=== PATIENT | male | born 1945 | race Caucasian/White ===

== ENCOUNTER 2022-12-05 02:46 | Day surgery (SDC) | payer MEDICARE, BC, SELFPAY ==
[2022-11-18 15:05] VITALS: BMI 29.0
--- NOTE | 2022-12-04 14:16 | WPDANESEPPF ---
Anes - Initial Pre Proc Eval Procedure: Operation Date: 12/05/22 11:00 Proposed Procedures p Esophagogastroduodenoscopy & Screening Colonoscopy - Pritesh Almonte MD Date/Time: 12/04/22 14:16 Surgeon: Pritesh Almonte MD Pre Op Diagnosis: dysphagia, neoplasm screening Patient Data Age: 77 Gender: M Height: 1.7 m Weight: 84.07 kg Allergies Allergy/AdvReac Type Severity Reaction Status Date / Time No Known Allergies Allergy Verified 12/05/22 09:57 Home Medications Medication Instructions Recorded Confirmed Type allopurinol 300 mg tablet 300 mg PO DAILY 10/30/22 12/05/22 History brinzolamide 1 %-brimonidine 0.2 % 1 drp EACH EYE TID 10/30/22 12/05/22 History eye drops,suspension (Simbrinza) captopril 12.5 mg tablet 12.5 mg PO Q12H 10/30/22 12/05/22 History ezetimibe 10 mg tablet (Zetia) 10 mg PO DAILY 10/30/22 12/05/22 History fenofibrate nanocrystallized 145 145 mg PO DAILY 10/30/22 12/05/22 History mg tablet (Tricor) liraglutide 0.6 mg/0.1 mL (18 mg/3 0.6 mg subcut DAILY 10/30/22 12/05/22 History mL) subcutaneous pen injector (Victoza 2-Papi) metoprolol succinate 50 mg 50 mg PO DAILY 10/30/22 12/05/22 History tablet,extended release 24 hr mirtazapine 45 mg disintegrating 45 mg PO DAILY 10/30/22 12/05/22 History tablet (Remeron SolTab) pantoprazole 40 mg tablet,delayed 40 mg PO QAM 10/30/22 12/05/22 History release pramipexole 0.125 mg tablet 0.125 mg PO QHS 10/30/22 12/05/22 History simvastatin 40 mg tablet 40 mg PO DAILY 10/30/22 12/05/22 History terazosin 2 mg capsule 2 mg PO DAILY 10/30/22 12/05/22 History tramadol 37.5 mg-acetaminophen 325 1 tablet PO Q6H PRN Pain 10/30/22 12/05/22 History mg tablet Patient hx anesthesia problems: none Family hx anesthesia problems: none Results Review: All pre-operative results and documents have been reviewed as part of the pre-operative evaluation. [facility] Past Medical History Medical History (Updated 12/05/22 @ 10:37 by Pritesh Almonte MD) Anal fissure Basal cell adenocarcinoma CAD (coronary artery disease) Carpal tunnel syndrome on both sides CKD (chronic kidney disease) III Diabetes mellitus Dilation of esophagus Dysphagia Encounter for screening colonoscopy Esophageal dysphagia GERD (gastroesophageal reflux disease) GI bleed History of heart attack HLD (hyperlipidemia) Hypertension Kidney stone Knee arthropathy Sepsis Surgical History Surgical History (Updated 12/05/22 @ 10:03 by Agapito Yoder DO) H/O endoscopy H/O heart artery stent 2004 x2, 2017?X1 History of appendectomy Social History Social History Smoking status: Never smoker Living arrangements: with family Geovanny Frey Final PreProcedure Day of Procedure 12/04/22 14:16 Patient weight: overweight Heart: regular rate and rhythm Lungs: clear to auscultation Airway: Mallampati scale class II Neurological: alert and oriented Last oral intake: >/= 8 hours ASA classification: III Emergent: no Anesthetic plan: proceed Anesthesia type and monitoring: general GIVS and standard monitoring Results Review: All pre-operative results and documents have been reviewed as part of the pre-operative evaluation. Informed Consent: The patient's anesthetic plan and its attendant risks and benefits were discussed with the patient/family/POA. Questions were solicited and answers provided to the satisfaction of the patient/family/POA.
[2022-12-05 09:58] VITALS: BP 128/98; PULSE 94; RESP 18; TEMP 36.3; O2SAT 100
[2022-12-05] MEDS: LACTATED RINGERS 1,000 ML 150 ML IV CONT (10:11)
--- NOTE | 2022-12-05 10:36 | PM.HPGS ---
History of Present Illness History of Present Illness Consent: Risks, benefits, and alternatives have been discussed and questions answered. Patient agrees to proceed with procedure. Chief complaint: dysphagia, neoplasm screening Narrative: Bob Nascimento is a 77 year old male with gerd controlled with ppi but lately dysphagia, had dilatation 2 years ago, last colonoscopy 20 years ago. Review of Systems Constitutional: Constitutional: Denies headache(s) and Denies weakness Eyes: Eyes: Denies blurry vision ENT: Reports Normal hearing present, Denies headache(s) and Denies neck pain Cardiovascular: Cardiovascular: Denies chest pain and Denies dyspnea Respiratory: Respiratory: Denies dyspnea Gastrointestinal: Gastrointestinal: Reports no additional gastrointestinal complaints Genitourinary: Genitourinary: Denies dysuria Musculoskeletal: Musculoskeletal: Denies neck pain Integumentary/Breasts: Skin/Breast: Denies dry skin Neurologic: Reports Normal hearing present, Denies headache(s) and Denies weakness Psychiatric: Psychiatric: Denies anxiety Endocrine: Endocrine: Denies change in body appearance Hematologic/Lymphatic: Hematologic/Lymphatic: Denies easy bleeding Allergic/Immunologic: Allergic/Immunologic: Denies urticaria PMFSH Past Medical History Medical History (Updated 12/05/22 @ 10:37 by Pritesh Almonte MD) Anal fissure Basal cell adenocarcinoma CAD (coronary artery disease) Carpal tunnel syndrome on both sides CKD (chronic kidney disease) III Diabetes mellitus Dilation of esophagus Dysphagia Encounter for screening colonoscopy Esophageal dysphagia GERD (gastroesophageal reflux disease) GI bleed History of heart attack HLD (hyperlipidemia) Hypertension Kidney stone Knee arthropathy Sepsis Surgical History Surgical History (Updated 12/05/22 @ 10:03 by Agapito Yoder DO) H/O endoscopy H/O heart artery stent 2004 x2, 2018?X1 History of appendectomy Social History Social History Smoking status: Never smoker Living arrangements: with family Meds Home Medications and Allergies Home Medications Medication Instructions Recorded Confirmed Type allopurinol 300 mg tablet 300 mg PO DAILY 10/30/22 12/05/22 History brinzolamide 1 %-brimonidine 0.2 % 1 drp EACH EYE TID 10/30/22 12/05/22 History eye drops,suspension (Simbrinza) captopril 12.5 mg tablet 12.5 mg PO Q12H 10/30/22 12/05/22 History ezetimibe 10 mg tablet (Zetia) 10 mg PO DAILY 10/30/22 12/05/22 History fenofibrate nanocrystallized 145 145 mg PO DAILY 10/30/22 12/05/22 History mg tablet (Tricor) liraglutide 0.6 mg/0.1 mL (18 mg/3 0.6 mg subcut DAILY 10/30/22 12/05/22 History mL) subcutaneous pen injector (Victoza 2-Papi) metoprolol succinate 50 mg 50 mg PO DAILY 10/30/22 12/05/22 History tablet,extended release 24 hr mirtazapine 45 mg disintegrating 45 mg PO DAILY 10/30/22 12/05/22 History tablet (Remeron SolTab) pantoprazole 40 mg tablet,delayed 40 mg PO QAM 10/30/22 12/05/22 History release pramipexole 0.125 mg tablet 0.125 mg PO QHS 10/30/22 12/05/22 History simvastatin 40 mg tablet 40 mg PO DAILY 10/30/22 12/05/22 History terazosin 2 mg capsule 2 mg PO DAILY 10/30/22 12/05/22 History tramadol 37.5 mg-acetaminophen 325 1 tablet PO Q6H PRN Pain 10/30/22 12/05/22 History mg tablet Allergies Allergy/AdvReac Type Severity Reaction Status Date / Time No Known Allergies Allergy Verified 12/05/22 09:57 Vital Signs Vital Signs - 24 hr 12/05/22 09:58 Temperature 97.4 F L Pulse Rate 94 Respiratory Rate 18 Blood Pressure 128/98 H Pulse Oximetry 100 Oxygen Delivery Room Air Exam Const: General: comfortable and no acute distress HENMT: Face/Nose/Sinus: Normal nares present Eyes: General: appearance normal, both eyes and all related structures Neck: Neck: no JVD Resp: Auscultation: clear to auscultation bilaterally Cardio: Rate: regular rat
[2022-12-05 10:48] LABS: Glucose Point of Care 198 mg/dl (65-105)
--- NOTE | 2022-12-05 11:04 | SUR.OPER ---
egd ended at 1057, colonoscopy started at 1103
[2022-12-05 11:16] VITALS: BP 110/62; PULSE 85; RESP 22; O2SAT 98
[2022-12-05 11:26] VITALS: BP 122/77; PULSE 86; RESP 20; O2SAT 99
[2022-12-05 11:36] VITALS: BP 135/81; PULSE 82; RESP 24; O2SAT 100
== END 2022-12-05 11:56 | disposition home or self-care (01) ==
PROVIDERS: PCP Family Medicine; Visit Provider Internal Medicine Gastroenterology
PROC: 0DJ08ZZ Inspection of Upper Intestinal Tract, Via Natural or Artificial Opening Endoscopic (ICD-10-PCS; CPT 43235; principal; 2022-12-05 11:00)
DX: Z12.11 Encounter for screening for malignant neoplasm of colon (principal); D12.3 Benign neoplasm of transverse colon; K63.5 Polyp of colon; K62.1 Rectal polyp; K64.8 Other hemorrhoids; K21.9 Gastro-esophageal reflux disease without esophagitis; R13.10 Dysphagia, unspecified; I12.9 Hypertensive chronic kidney disease with stage 1 through stage 4 chronic kidney disease, or unspecified chronic kidney disease; E11.22 Type 2 diabetes mellitus with diabetic chronic kidney disease; N18.30 Chronic kidney disease, stage 3 unspecified; I25.10 Atherosclerotic heart disease of native coronary artery without angina pectoris; I25.2 Old myocardial infarction; E78.5 Hyperlipidemia, unspecified; Z79.899 Other long term (current) drug therapy; Z95.5 Presence of coronary angioplasty implant and graft
CPT/HCPCS: 45385; 43239; 43248; 82948; 88305; J2704; J7120

== ENCOUNTER 2023-01-26 13:22 | Outpatient (CLI) | payer MEDICARE, BC, SELFPAY ==
--- NOTE | ~2023-01-26 | XR_ITS ---
EXAMINATION: XR UGI w barium swallow DATE: 01/26/2023 14:10 INDICATION: Dysphagia. TECHNIQUE: The patient drank thick barium, gas-producing crystals, and thin barium. Fluoroscopic spot radiographs of the hypopharynx, esophagus, stomach and proximal small bowel were obtained. Fluorosco py exposure time was 3.3 minutes. A total of 1391 images were recorded. Total DAP was 20.97 Gycm^2 COMPARISON: None. FINDINGS: The pharynx is symmetric and without evidence of mass lesion or mucosal irregularity. The esophagus p roximal to the level of the caitlyn is patulous with weak primary and secondary peristaltic waves resu lting in pooling of contrast. There is esophageal spasm throughout the more distal esophagus with donna rganized tertiary contractions RESULTING in some pooling of contrast in the esophagus. There is inter mittent relaxation of the lower esophageal sphincter but no fixed obstructing mass or stricture. Ther e is no hiatal hernia. There was no gastroesophageal reflux with provocative maneuvers. The stomach a nd proximal small bowel are normal. IMPRESSION: 1. Esophageal dysmotility with esophageal spasm and disorganized tertiary contractions in the distal half of the esophagus with more proximal patulous esophagus with primary and secondary peristalsis. N o fixed obstructing mass or stricture. Reviewed, dictated and finalized at location [facility] IMPRESSION: 1. Esophageal dysmotility with esophageal spasm and disorganized tertiary contr actions in the distal half of the esophagus with more proximal patulous esophag us with primary and secondary peristalsis. No fixed obstructing mass or strictu re.
== END 2023-01-26 13:23 | disposition home or self-care (01) ==
PROVIDERS: PCP Family Medicine; Visit Provider Internal Medicine Gastroenterology
DX: R13.10 Dysphagia, unspecified (principal); K21.9 Gastro-esophageal reflux disease without esophagitis
CPT/HCPCS: 74240